=== PATIENT | female | born 1980 | race Caucasian/White ===

== ENCOUNTER 2019-04-05 09:41 | Day surgery (SDC) | payer MEDICAID ==
[~2019-04-05] VITALS: Ht 162.6 cm; Wt 59.0 kg
[2019-04-05] MEDS ORDERED: ONDANSETRON 4 MG/2 ML VIAL ONE (13:51)
[2019-04-05] MEDS ORDERED: PROPOFOL 200 MG/20 ML VIAL IV ONE (13:51)
[2019-04-05] MEDS ORDERED: NEOSTIGMINE 1:1000 10 MG/10 ML VIAL ONE (13:51)
[2019-04-05] MEDS ORDERED: SEVOFLURANE 250 ML BTL INH ONE (13:51)
[2019-04-05] MEDS ORDERED: DEXAMETHASONE 4 MG/ML VIAL ONE (13:51)
[2019-04-05] MEDS ORDERED: ROCURONIUM 50 MG/5 ML VIAL IV ONE (13:51)
[2019-04-05] MEDS ORDERED: GLYCOPYRROLATE 0.2 MG/ML VIAL ONE (13:51)
[2019-04-05] MEDS ORDERED: SUCCINYLCHOLINE CHLORIDE 200 MG/10 ML VIAL IVP ONE (13:51)
[2019-04-05] MEDS ORDERED: fentaNYL 0.05 MG/ML VIAL ONE (13:54)
[2019-04-05] MEDS ORDERED: MEPERIDINE 50 MG/ML SYR ONE (13:54)
[2019-04-05] MEDS ORDERED: MIDAZOLAM 2 MG/2 ML VIAL ONE (13:54)
[2019-04-05] MEDS ORDERED: LACTATED RINGERS 1,000 ML IV SCH (14:26)
[2019-04-05] MEDS ORDERED: HYDROmorphone 1 MG/ML AMP IVP PRN (14:30)
[2019-04-05] MEDS ORDERED: MEPERIDINE 25 MG/ML SYR IVP PRN (14:30)
[2019-04-05] MEDS ORDERED: diphenhydrAMINE 50 MG/ML VIAL IVP PRN (14:30)
[2019-04-05] MEDS ORDERED: ONDANSETRON 4 MG/2 ML VIAL IVP PRN (14:30)
== END 2019-04-05 16:05 | disposition home or self-care (01) ==
LOC: MMU 09:41 → MOR 09:41
PROVIDERS: ATTEND Obstetrics & Gynecology
DX: Z30.2 Encounter for sterilization (principal); Z98.890 Other specified postprocedural states
CPT/HCPCS: J0330; J1100; J2175; J2250; J2405; J2704; J2710; J3010; J3490; J7120